=== PATIENT | female | born 1985 | race Caucasian/White ===

== ENCOUNTER 2016-06-25 20:07 | Emergency (ER) | payer SELFPAY ==
[~2016-06-25] VITALS: Ht 160 cm; Wt 59.0 kg
[2016-06-25 20:30] VITALS: BP_SYST 111
--- NOTE | 2016-06-25 20:30 | NUR ---
Patient to ER bed 4 to gown for evaluation. Side rails up. Report given to MELONY Abraham
--- NOTE | 2016-06-25 20:35 | NUR ---
Note [facility] in EDM - 06/26/16 at 0417 by [email or web address] Patient given written and verbal discharge instructions and verbalizes understanding. ER MD Hardin discussed with patient the results and treatment provided. Patient in stable condition. ID arm band removed. Rx of clindamycin, bactroban, augmentin given. Patient educated on pain management and to follow up with PMD. Pain Scale 0/10 Opportunity for questions provided and answered.
--- NOTE | 2016-06-25 20:35 | NUR ---
Pt presents to ED with abscess at left tempo x 3 days, with some headache 3/10 per pt. Abscess site red, swollen, with pus. A&Ox4, denies SOB or chestpain, denies N/V/D. Will continue to monitor
--- NOTE | 2016-06-25 20:56 | NUR ---
MD Hardin at bedside examining pt
[2016-06-25] MEDS ORDERED: ceFAZolin SODIUM 1 GM VIAL IM ONE (21:00)
[2016-06-25] MEDS ORDERED: CLINDAMYCIN HCL 150 MG CAPSULE PO ONE (21:00)
[2016-06-25] MEDS ORDERED: BACITRACIN 1 GM OINT TP ONE (21:00)
[2016-06-25] MEDS ORDERED: LIDOCAINE 1%, 20 ML MDV 20 ML ONE (21:17)
[2016-06-25 21:35] VITALS: BP_SYST 110
--- NOTE | 2016-06-25 21:35 | NUR ---
Patient given written and verbal discharge instructions and verbalizes understanding. ER MD Hardin discussed with patient the results and treatment provided. Patient in stable condition. ID arm band removed. Rx of clindamycin, bactroban, augmentin given. Patient educated on pain management and to follow up with PMD. Pain Scale 0/10 Opportunity for questions provided and answered.
== END 2016-06-25 21:35 | disposition home or self-care (01) ==
LOC: SED 20:07
DX: L03.211 Cellulitis of face (principal); Z88.1 Allergy status to other antibiotic agents
CPT/HCPCS: 96372; 99283; J0690; J2001